=== PATIENT | female | born 1930 | race Caucasian/White ===

== ENCOUNTER 2018-09-16 11:13 | Outpatient (RCR) | payer MEDICARE | END 2018-09-17 | LOC: PT 11:13 | PROVIDERS: ATTEND Specialist | DX: M17.0 Bilateral primary osteoarthritis of knee (principal); M25.562 Pain in left knee; M25.561 Pain in right knee; M62.81 Muscle weakness (generalized); R26.81 Unsteadiness on feet; R26.89 Other abnormalities of gait and mobility | CPT/HCPCS: 97162; G8978; G8979 ==

== ENCOUNTER 2018-10-07 10:55 | Outpatient (RCR) | payer MEDICARE | END 2018-10-18 | LOC: PT 10:55 | PROVIDERS: ATTEND Specialist | DX: M17.0 Bilateral primary osteoarthritis of knee (principal); M25.561 Pain in right knee; M62.81 Muscle weakness (generalized); R26.81 Unsteadiness on feet; R26.89 Other abnormalities of gait and mobility ==

== ENCOUNTER → 2018-12-16 | Outpatient (RCR) | payer MEDICARE | LOC: PT 11:05 | PROVIDERS: ATTEND Specialist | DX: M17.0 Bilateral primary osteoarthritis of knee (principal); M25.562 Pain in left knee; M25.561 Pain in right knee; M62.81 Muscle weakness (generalized); R26.81 Unsteadiness on feet; R26.89 Other abnormalities of gait and mobility ==

== ENCOUNTER 2019-01-13 13:00 | Outpatient (RCR) | payer MEDICARE | END 2019-01-16 | LOC: PT 13:00 | PROVIDERS: ATTEND Specialist | DX: M17.0 Bilateral primary osteoarthritis of knee (principal); M25.561 Pain in right knee; M62.81 Muscle weakness (generalized); R26.81 Unsteadiness on feet; R26.89 Other abnormalities of gait and mobility | CPT/HCPCS: 97139 ==

== ENCOUNTER 2019-02-11 13:00 | Outpatient (RCR) | payer MEDICARE | END 2019-02-15 | LOC: PT 13:00 | PROVIDERS: ATTEND Specialist | DX: M17.0 Bilateral primary osteoarthritis of knee (principal); M25.561 Pain in right knee; R26.89 Other abnormalities of gait and mobility; M62.81 Muscle weakness (generalized) ==

== ENCOUNTER 2019-03-11 13:00 | Outpatient (RCR) | payer MEDICARE | END 2019-03-18 | LOC: PT 13:00 | PROVIDERS: ATTEND Specialist | DX: M17.0 Bilateral primary osteoarthritis of knee (principal); M25.561 Pain in right knee; M62.81 Muscle weakness (generalized); R26.81 Unsteadiness on feet; R26.89 Other abnormalities of gait and mobility | CPT/HCPCS: 97139 ==